=== PATIENT | female | born 1950 | race Caucasian/White ===

== ENCOUNTER 2019-01-16 10:34 | Outpatient (CLI) | payer MEDICARE, OTHER ==
[2019-01-16 12:13] LABS: MICROSCOPIC NOT IND
[2019-01-16 12:14] LABS: BASOPHILS # (AUTO) 0.03 x10^3/uL (0-0.1); BASOPHILS % (AUTO) 1 % (0-1); EOSINOPHILS # (AUTO) 0.13 x10^3/uL (0-0.4); EOSINOPHILS % (AUTO) 2 % (1-7); LYMPHOCYTES # (AUTO) 1.51 x10^3/uL (1-3.4); LYMPHOCYTES % (AUTO) 22 % (22-44); MD NO; MEAN CORPUSCULAR HEMOGLOBIN 30.6 pg (27.0-34.8); MEAN CORPUSCULAR HGB CONC 33.1 g/dL (32.4-35.8); MEAN CORPUSCULAR VOLUME 92.4 fL (80-100); MEAN PLATELET VOLUME 8.4 fL (7.4-10.4); MONOCYTES # (AUTO) 0.44 x10^3/uL (0.2-0.8); MONOCYTES % (AUTO) 7 % (2-9); NEUTROPHILS # (AUTO) 4.66 x10^3/uL (1.8-6.8); NEUTROPHILS % (AUTO) 69 % (42-75); PLATELET COUNT 277 x10^3/uL (130-400); RED BLOOD COUNT 4.07 x10^6/uL (3.82-5.3); RED CELL DISTRIBUTION WIDTH 13.1 % (9.6-15.2)
[2019-01-16 12:20] LABS: CULTURE INDICATED? NO
[2019-01-16 12:24] LABS: ANION GAP 5 mmol/L (5-15); CALCIUM 8.6 mg/dL (8.5-10.1); CHLORIDE 102 mmol/L (98-107); CREATININE 0.83 mg/dL (0.55-1.02)
[2019-01-16 12:35] LABS: INTERNATIONAL NORMALIZED RATIO 0.95 (0.93-1.1)
[2019-01-16] MEDS ORDERED: NAPR220T77 PO (16:13)
[2019-01-16] MEDS ORDERED: ROSU10TA2 PO (16:13)
== END 2019-01-16 23:59 | disposition home or self-care (01) ==
LOC: STAR 10:34 → RAD 23:59
PROVIDERS: ATTEND Neurological Surgery
DX: M51.36 Other intervertebral disc degeneration, lumbar region (principal); M48.062 Spinal stenosis, lumbar region with neurogenic claudication
CPT/HCPCS: 36415; 72110; 80048; 81003; 85025; 85610; 85730; 93005

== ENCOUNTER 2019-01-29 10:08 | Inpatient (IN) | payer MEDICARE, OTHER ==
[~2019-01-29] VITALS: Ht 175.3 cm; Wt 84.5 kg
[~2019-01-29 10:08] MED LIST: BACITRACIN 50,000 UNIT ONE; BUPIVACAINE/PF 0.25% ONE; EPINEPHRINE 1 MG/ML, 1ML ONE; NAPR220T77 PO; ROSU10TA2 PO; THROMBIN 20,000 UNIT VIAL TP ONE; VANCOMYCIN 1,000 MG ONE
[2019-01-29] MEDS ORDERED: LACTATED RINGERS 1,000 ML IV SCH (10:36)
[2019-01-29] MEDS ORDERED: LIDOCAINE-MPF 1%, 2ML INFIL ONE (11:00)
[2019-01-29] MEDS ORDERED: FENTANYL PF 250 MCG/5ML ONE ×2 (12:53→16:03)
[2019-01-29] MEDS ORDERED: MIDAZOLAM 1 MG/ML, 2ML ONE (12:53)
[2019-01-29] MEDS ORDERED: SUCCINYLCHOLINE 20 MG/ML, 10ML ONE (12:57)
[2019-01-29] MEDS ORDERED: CEFAZOLIN 1,000 MG ONE (12:57)
[2019-01-29] MEDS ORDERED: EPHEDRINE 50 MG/ML, 1ML ONE (12:57)
[2019-01-29] MEDS ORDERED: DEXAMETHASONE 4 MG/ML, 1ML ONE (12:57)
[2019-01-29] MEDS ORDERED: ONDANSETRON 2MG/ML, 2ML ONE (12:57)
[2019-01-29] MEDS ORDERED: PROPOFOL 10 MG/ML, 50ML ONE (12:57)
[2019-01-29] MEDS ORDERED: BUPIVACAINE/PF-EPI 0.25% 1:200K INFIL ONE (13:23)
[2019-01-29] MEDS ORDERED: BACITRACIN 50,000 UNIT IM ONE (13:23)
[2019-01-29] MEDS ORDERED: THROMBIN SPRAY 20,000 UNIT SPRAY TP ONE (13:23)
[2019-01-29] MEDS ORDERED: VANCOMYCIN 1,000 MG IM ONE (13:23)
[2019-01-29] MEDS ORDERED: LABETALOL 5MG/ML, 20ML IV PRN (15:30)
[2019-01-29] MEDS ORDERED: OXYcodone 5 MG/5 ML ORAL.SOL UDC PO PRN (15:30)
[2019-01-29] MEDS ORDERED: DIAZEPAM 5 MG/ML, 2ML IVPush PRN (15:30)
[2019-01-29] MEDS ORDERED: FENTANYL PF 100 MCG/2ML IV PRN (15:30)
[2019-01-29] MEDS ORDERED: MEPERIDINE/PF 25MG/0.5ML IVPush PRN (15:30)
[2019-01-29] MEDS ORDERED: ACETAMINOPHEN 325 MG TABLET PO PRN (15:30)
[2019-01-29] MEDS ORDERED: PROMETHAZINE 25 MG/ML, 1ML IV PRN (15:30)
[2019-01-29] MEDS ORDERED: hydrALAzine 20 MG/ML, 1ML IV PRN (15:30)
[2019-01-29] MEDS ORDERED: ALBUTEROL SULFATE 2.5 MG/3 ML NPPB PRN (15:30)
[2019-01-29] MEDS ORDERED: HYDROmorphone 2 MG/ML, 1ML ONE (16:58)
[2019-01-29] MEDS ORDERED: OXYcodone 5 MG/5 ML ORAL.SOL UDC ONE (16:58)
[2019-01-29] MEDS ORDERED: HYDROmorphone PCA 30 MG/30 ML IV PRN ×2 (17:00)
[2019-01-29] MEDS ORDERED: HYDROmorphone 1 MG/ML, 1ML INJ IVPush PRN (17:00)
[2019-01-29] MEDS ORDERED: DIAZEPAM 5 MG TABLET PO PRN (17:00)
[2019-01-29] MEDS ORDERED: BISACODYL 10 MG SUPP PR PRN (17:00)
[2019-01-29] MEDS ORDERED: MEPERIDINE/PF 100 MG/ML IM PRN (17:00)
[2019-01-29] MEDS ORDERED: DIPHENHYDRAMINE 50 MG/ML, 1ML IVPush PRN (17:00)
[2019-01-29] MEDS ORDERED: CEFAZOLIN PMX 1GM/50ML 50 ML IVPB SCH (17:00)
[2019-01-29] MEDS ORDERED: PROMETHAZINE 25 MG/ML, 1ML IM PRN (17:00)
[2019-01-29] MEDS ORDERED: PHARMACY MAY ADJ FOR RENAL FX MC PRN (17:00)
[2019-01-29] MEDS ORDERED: MAGNESIUM HYDROXIDE 8%, 30ML UDC PO PRN (17:00)
[2019-01-29] MEDS: HYDROmorphone 2 MG/ML, 1ML IVPush PRN ×3 (17:01→17:26)
[2019-01-29] MEDS ORDERED: SODIUM CHLORIDE 0.9%, 500ML IVBOLUS ONE (19:00)
[2019-01-29 19:19] LABS: BASOPHILS # (AUTO) 0.01 x10^3/uL (0-0.1); BASOPHILS % (AUTO) 0 % (0-1); EOSINOPHILS # (AUTO) 0.01 x10^3/uL (0-0.4); EOSINOPHILS % (AUTO) 0 % (1-7); LYMPHOCYTES % (AUTO) 9 % (22-44); MD NO; MEAN CORPUSCULAR HEMOGLOBIN 31.7 pg (27.0-34.8); MEAN CORPUSCULAR HGB CONC 34.4 g/dL (32.4-35.8); MEAN CORPUSCULAR VOLUME 92.2 fL (80-100); MEAN PLATELET VOLUME 7.9 fL (7.4-10.4); MONOCYTES # (AUTO) 0.61 x10^3/uL (0.2-0.8); MONOCYTES % (AUTO) 5 % (2-9); NEUTROPHILS # (AUTO) 10.05 x10^3/uL (1.8-6.8); NEUTROPHILS % (AUTO) 86 % (42-75); PLATELET COUNT 219 x10^3/uL (130-400); RED BLOOD COUNT 2.98 x10^6/uL (3.82-5.3); RED CELL DISTRIBUTION WIDTH 13.4 % (9.6-15.2)
[2019-01-29 19:25] VITALS: BP 100/62
[2019-01-29] MEDS: CEFAZOLIN PMX 1GM/50ML 50 ML IVPB SCH (20:49)
[2019-01-29] MEDS: SODIUM CHLORIDE FLUSH 10ML SYR IVF SCH (20:50)
[2019-01-29] MEDS: NS + 20MEQ KCL 1,000 ML IV SCH (20:50)
[2019-01-29] MEDS: ATORVASTATIN 20 MG TABLET PO SCH (20:50)
[2019-01-30] MEDS: TIZANIDINE 4MG TABLET PO PRN ×3 (00:18→15:47)
[2019-01-30 01:39] VITALS: BP 96/59
[2019-01-30] MEDS: ONDANSETRON 2MG/ML, 2ML IVPush PRN ×4 (04:01→22:27)
[2019-01-30] MEDS: OXYcodone/APAP 10/325MG TABLET PO PRN ×3 (04:01→22:27)
[2019-01-30] MEDS: CEFAZOLIN PMX 1GM/50ML 50 ML IVPB SCH (04:55)
[2019-01-30 05:32] LABS: BASOPHILS # (AUTO) 0.01 x10^3/uL (0-0.1); BASOPHILS % (AUTO) 0 % (0-1); EOSINOPHILS # (AUTO) 0.19 x10^3/uL (0-0.4); EOSINOPHILS % (AUTO) 2 % (1-7); LYMPHOCYTES # (AUTO) 0.92 x10^3/uL (1-3.4); LYMPHOCYTES % (AUTO) 9 % (22-44); MD NO; MEAN CORPUSCULAR HEMOGLOBIN 31.6 pg (27.0-34.8); MEAN CORPUSCULAR VOLUME 92.8 fL (80-100); MEAN PLATELET VOLUME 8.3 fL (7.4-10.4); MONOCYTES # (AUTO) 0.76 x10^3/uL (0.2-0.8); MONOCYTES % (AUTO) 7 % (2-9); NEUTROPHILS # (AUTO) 8.48 x10^3/uL (1.8-6.8); NEUTROPHILS % (AUTO) 82 % (42-75); PLATELET COUNT 201 x10^3/uL (130-400); RED BLOOD COUNT 2.58 x10^6/uL (3.82-5.3); RED CELL DISTRIBUTION WIDTH 13.3 % (9.6-15.2)
[2019-01-30 05:38] LABS: ANION GAP 8 mmol/L (5-15); CALCIUM 7.5 mg/dL (8.5-10.1); CHLORIDE 109 mmol/L (98-107)
[2019-01-30 05:39] LABS: CREATININE 0.89 mg/dL (0.55-1.02)
[2019-01-30] MEDS: NS + 20MEQ KCL 1,000 ML IV SCH ×2 (06:36→15:49)
[2019-01-30 08:03] VITALS: BP 93/64
[2019-01-30] MEDS: SENNA/DOCUSATE TABLET PO SCH (08:10)
[2019-01-30] MEDS: SODIUM CHLORIDE FLUSH 10ML SYR IVF SCH ×2 (08:10→20:36)
[2019-01-30 08:21] VITALS: BP 87/50
[2019-01-30 13:21] VITALS: BP 83/40
[2019-01-30 20:13] VITALS: BP 109/51
[2019-01-30] MEDS: ATORVASTATIN 20 MG TABLET PO SCH (20:35)
[2019-01-31] VITALS (9 sets, daily range): BP systolic 87–113; BP diastolic 46–70
[2019-01-31] MEDS: NS + 20MEQ KCL 1,000 ML IV SCH ×2 (02:25→21:00)
[2019-01-31] MEDS: TIZANIDINE 4MG TABLET PO PRN ×2 (05:16→23:16)
[2019-01-31 06:11] LABS: ANION GAP 4 mmol/L (5-15); CALCIUM 7.4 mg/dL (8.5-10.1); CHLORIDE 106 mmol/L (98-107); CREATININE 0.72 mg/dL (0.55-1.02)
[2019-01-31 06:14] LABS: MEAN CORPUSCULAR HGB CONC 33.7 g/dL (32.4-35.8); MEAN CORPUSCULAR VOLUME 91.9 fL (80-100); MEAN PLATELET VOLUME 8.2 fL (7.4-10.4); PLATELET COUNT 154 x10^3/uL (130-400); RED CELL DISTRIBUTION WIDTH 13.4 % (9.6-15.2)
[2019-01-31 07:00] LABS: BASOPHILS # (AUTO) 0.02 x10^3/uL (0-0.1); BASOPHILS % (AUTO) 0 % (0-1); EOSINOPHILS # (AUTO) 0.05 x10^3/uL (0-0.4); EOSINOPHILS % (AUTO) 1 % (1-7); LYMPHOCYTES # (AUTO) 1.07 x10^3/uL (1-3.4); LYMPHOCYTES % (AUTO) 18 % (22-44); MD SCAN; MONOCYTES # (AUTO) 0.59 x10^3/uL (0.2-0.8); MONOCYTES % (AUTO) 10 % (2-9); NEUTROPHILS # (AUTO) 4.14 x10^3/uL (1.8-6.8); NEUTROPHILS % (AUTO) 71 % (42-75)
[2019-01-31] MEDS: SODIUM CHLORIDE FLUSH 10ML SYR IVF SCH ×2 (09:00→21:00)
[2019-01-31] MEDS: SENNA/DOCUSATE TABLET PO SCH (09:00)
[2019-01-31] MEDS: ONDANSETRON 2MG/ML, 2ML IVPush PRN ×2 (12:18→20:51)
[2019-01-31] MEDS: OXYcodone/APAP 10/325MG TABLET PO PRN (12:18)
[2019-01-31] MEDS: ATORVASTATIN 20 MG TABLET PO SCH (21:00)
[2019-01-31] MEDS: METOCLOPRAMIDE 5 MG/ML, 2ML IVPush PRN (21:48)
[2019-02-01 02:01] VITALS: BP 102/63
[2019-02-01 06:04] LABS: ANION GAP 4 mmol/L (5-15); CALCIUM 7.7 mg/dL (8.5-10.1); CHLORIDE 109 mmol/L (98-107); CREATININE 0.64 mg/dL (0.55-1.02)
[2019-02-01 06:22] LABS: BASOPHILS # (AUTO) 0.01 x10^3/uL (0-0.1); BASOPHILS % (AUTO) 0 % (0-1); EOSINOPHILS % (AUTO) 0 % (1-7); LYMPHOCYTES # (AUTO) 0.78 x10^3/uL (1-3.4); LYMPHOCYTES % (AUTO) 11 % (22-44); MD NO; MEAN CORPUSCULAR HEMOGLOBIN 31.6 pg (27.0-34.8); MEAN CORPUSCULAR HGB CONC 34.6 g/dL (32.4-35.8); MEAN CORPUSCULAR VOLUME 91.1 fL (80-100); MEAN PLATELET VOLUME 8.4 fL (7.4-10.4); MONOCYTES # (AUTO) 0.55 x10^3/uL (0.2-0.8); MONOCYTES % (AUTO) 8 % (2-9); NEUTROPHILS # (AUTO) 5.55 x10^3/uL (1.8-6.8); NEUTROPHILS % (AUTO) 81 % (42-75); PLATELET COUNT 150 x10^3/uL (130-400); RED BLOOD COUNT 3.09 x10^6/uL (3.82-5.3); RED CELL DISTRIBUTION WIDTH 13.6 % (9.6-15.2)
[2019-02-01 07:30] VITALS: BP 116/68
[2019-02-01] MEDS: NS + 20MEQ KCL 1,000 ML IV SCH ×2 (07:56→20:48)
[2019-02-01] MEDS: SODIUM CHLORIDE FLUSH 10ML SYR IVF SCH ×2 (07:56→22:18)
[2019-02-01] MEDS: SENNA/DOCUSATE TABLET PO SCH (07:57)
[2019-02-01] MEDS: SCOPOLAMINE PATCH, 1.5MG PATCH.TD72 TD SCH (09:00)
[2019-02-01 12:28] LABS: BASOPHILS # (AUTO) 0.04 x10^3/uL (0-0.1); BASOPHILS % (AUTO) 1 % (0-1); EOSINOPHILS # (AUTO) 0.05 x10^3/uL (0-0.4); EOSINOPHILS % (AUTO) 1 % (1-7); LYMPHOCYTES # (AUTO) 0.92 x10^3/uL (1-3.4); LYMPHOCYTES % (AUTO) 11 % (22-44); MD NO; MEAN CORPUSCULAR HEMOGLOBIN 30.7 pg (27.0-34.8); MEAN CORPUSCULAR HGB CONC 33.6 g/dL (32.4-35.8); MEAN CORPUSCULAR VOLUME 91.1 fL (80-100); MEAN PLATELET VOLUME 8.4 fL (7.4-10.4); MONOCYTES # (AUTO) 0.75 x10^3/uL (0.2-0.8); MONOCYTES % (AUTO) 9 % (2-9); NEUTROPHILS # (AUTO) 6.74 x10^3/uL (1.8-6.8); NEUTROPHILS % (AUTO) 79 % (42-75); PLATELET COUNT 181 x10^3/uL (130-400); RED CELL DISTRIBUTION WIDTH 13.3 % (9.6-15.2)
[2019-02-01 12:35] LABS: ANION GAP 5 mmol/L (5-15); CALCIUM 7.8 mg/dL (8.5-10.1); CHLORIDE 110 mmol/L (98-107); CREATININE 0.71 mg/dL (0.55-1.02)
[2019-02-01 12:40] VITALS: BP 115/75
[2019-02-01] MEDS: METOCLOPRAMIDE 5 MG/ML, 2ML IVPush PRN (16:09)
[2019-02-01 18:36] VITALS: BP 133/68
[2019-02-01] MEDS: ATORVASTATIN 20 MG TABLET PO SCH (22:18)
[2019-02-01] MEDS: HYDROmorphone 2MG TABLET PO PRN (22:38)
[2019-02-02] VITALS: BP 121/63
[2019-02-02 05:14] LABS: BASOPHILS # (AUTO) 0.09 x10^3/uL (0-0.1); BASOPHILS % (AUTO) 1 % (0-1); EOSINOPHILS # (AUTO) 0.14 x10^3/uL (0-0.4); EOSINOPHILS % (AUTO) 2 % (1-7); LYMPHOCYTES # (AUTO) 1.25 x10^3/uL (1-3.4); LYMPHOCYTES % (AUTO) 15 % (22-44); MD NO; MEAN CORPUSCULAR HGB CONC 35.1 g/dL (32.4-35.8); MEAN CORPUSCULAR VOLUME 91.3 fL (80-100); MEAN PLATELET VOLUME 8.3 fL (7.4-10.4); MONOCYTES % (AUTO) 10 % (2-9); NEUTROPHILS # (AUTO) 5.97 x10^3/uL (1.8-6.8); NEUTROPHILS % (AUTO) 72 % (42-75); PLATELET COUNT 197 x10^3/uL (130-400); RED BLOOD COUNT 3.08 x10^6/uL (3.82-5.3); RED CELL DISTRIBUTION WIDTH 13.5 % (9.6-15.2)
[2019-02-02 05:29] LABS: ANION GAP 6 mmol/L (5-15); CALCIUM 7.5 mg/dL (8.5-10.1); CHLORIDE 110 mmol/L (98-107); CREATININE 0.63 mg/dL (0.55-1.02)
[2019-02-02] MEDS: NS + 20MEQ KCL 1,000 ML IV SCH ×2 (07:53→18:18)
[2019-02-02] MEDS: SODIUM CHLORIDE FLUSH 10ML SYR IVF SCH ×2 (07:53→21:00)
[2019-02-02] MEDS: SENNA/DOCUSATE TABLET PO SCH (07:53)
[2019-02-02 08:01] VITALS: BP 148/103
[2019-02-02 09:45] LABS: CLOSTRIDIUM DIFFICILE ANTIGEN NEGATIVE; CLOSTRIDIUM DIFFICILE TOXIN NEGATIVE (Negative)
[2019-02-02] MEDS: HYDROmorphone 2MG TABLET PO PRN (10:47)
[2019-02-02 12:40] VITALS: BP 112/72
[2019-02-02 19:47] VITALS: BP 138/78
[2019-02-02] MEDS: ATORVASTATIN 20 MG TABLET PO SCH (21:16)
[2019-02-02] MEDS: METOCLOPRAMIDE 5 MG/ML, 2ML IVPush PRN (21:16)
[2019-02-03] MEDS: NS + 20MEQ KCL 1,000 ML IV SCH ×3 (03:01→23:28)
[2019-02-03] MEDS: SODIUM CHLORIDE FLUSH 10ML SYR IVF SCH ×2 (03:03→19:36)
[2019-02-03 03:29] VITALS: BP 121/64
[2019-02-03 05:32] LABS: BASOPHILS # (AUTO) 0.02 x10^3/uL (0-0.1); BASOPHILS % (AUTO) 0 % (0-1); EOSINOPHILS # (AUTO) 0.31 x10^3/uL (0-0.4); EOSINOPHILS % (AUTO) 5 % (1-7); LYMPHOCYTES # (AUTO) 1.24 x10^3/uL (1-3.4); LYMPHOCYTES % (AUTO) 18 % (22-44); MD NO; MEAN CORPUSCULAR HEMOGLOBIN 31.9 pg (27.0-34.8); MEAN CORPUSCULAR HGB CONC 34.4 g/dL (32.4-35.8); MEAN CORPUSCULAR VOLUME 92.8 fL (80-100); MEAN PLATELET VOLUME 8.6 fL (7.4-10.4); MONOCYTES # (AUTO) 0.79 x10^3/uL (0.2-0.8); MONOCYTES % (AUTO) 12 % (2-9); NEUTROPHILS # (AUTO) 4.51 x10^3/uL (1.8-6.8); NEUTROPHILS % (AUTO) 66 % (42-75); PLATELET COUNT 210 x10^3/uL (130-400); RED BLOOD COUNT 3.12 x10^6/uL (3.82-5.3); RED CELL DISTRIBUTION WIDTH 13.2 % (9.6-15.2)
[2019-02-03 05:33] LABS: CHLORIDE 109 mmol/L (98-107)
[2019-02-03 05:39] LABS: ANION GAP 6 mmol/L (5-15); CALCIUM 7.6 mg/dL (8.5-10.1); CREATININE 0.61 mg/dL (0.55-1.02)
[2019-02-03 07:09] VITALS: BP 126/73
[2019-02-03] MEDS: SENNA/DOCUSATE TABLET PO SCH (08:28)
[2019-02-03 14:02] VITALS: BP 124/76
[2019-02-03] MEDS: BETHANECHOL 10 MG TABLET PO PRN (19:35)
[2019-02-03] MEDS: ATORVASTATIN 20 MG TABLET PO SCH (19:35)
[2019-02-03 20:12] VITALS: BP 148/78
[2019-02-04 01:29] VITALS: BP 137/70
[2019-02-04 06:28] LABS: BASOPHILS # (AUTO) 0.02 x10^3/uL (0-0.1); BASOPHILS % (AUTO) 0 % (0-1); EOSINOPHILS # (AUTO) 0.28 x10^3/uL (0-0.4); EOSINOPHILS % (AUTO) 5 % (1-7); LYMPHOCYTES # (AUTO) 1.32 x10^3/uL (1-3.4); LYMPHOCYTES % (AUTO) 22 % (22-44); MD NO; MEAN CORPUSCULAR HEMOGLOBIN 31.7 pg (27.0-34.8); MEAN CORPUSCULAR HGB CONC 34.5 g/dL (32.4-35.8); MEAN CORPUSCULAR VOLUME 91.8 fL (80-100); MEAN PLATELET VOLUME 8.2 fL (7.4-10.4); MONOCYTES # (AUTO) 0.71 x10^3/uL (0.2-0.8); MONOCYTES % (AUTO) 12 % (2-9); NEUTROPHILS # (AUTO) 3.65 x10^3/uL (1.8-6.8); NEUTROPHILS % (AUTO) 61 % (42-75); PLATELET COUNT 220 x10^3/uL (130-400); RED BLOOD COUNT 2.99 x10^6/uL (3.82-5.3); RED CELL DISTRIBUTION WIDTH 13.3 % (9.6-15.2)
[2019-02-04 06:34] LABS: ANION GAP 5 mmol/L (5-15); CALCIUM 7.8 mg/dL (8.5-10.1); CHLORIDE 110 mmol/L (98-107); CREATININE 0.58 mg/dL (0.55-1.02)
[2019-02-04] MEDS ORDERED: TIZA2TAB PO (07:50)
[2019-02-04] MEDS ORDERED: HYDR2TAB40 PO (07:50)
[2019-02-04 07:59] VITALS: BP 139/82
[2019-02-04] MEDS: SODIUM CHLORIDE FLUSH 10ML SYR IVF SCH (08:19)
[2019-02-04] MEDS: SCOPOLAMINE PATCH, 1.5MG PATCH.TD72 TD SCH (08:22)
[2019-02-04] MEDS: SENNA/DOCUSATE TABLET PO SCH (08:23)
[2019-02-04] MEDS: BETHANECHOL 10 MG TABLET PO PRN ×2 (08:32→14:57)
[2019-02-04 14:17] VITALS: BP 116/76
== END 2019-02-04 17:00 | DRG 453 ==
LOC: ORIP 10:08 → 4NOR 18:09
PROVIDERS: ADMIT Neurological Surgery; ATTEND Neurological Surgery
PROC: 0SG1071 Fusion of 2 or more Lumbar Vertebral Joints with Autologous Tissue Substitute, Posterior Approach, Posterior Column, Open Approach (ICD-10-PCS; 2019-01-29)
PROC: 0SP008Z Removal of Spacer from Lumbar Vertebral Joint, Open Approach (ICD-10-PCS; 2019-01-29)
PROC: 0SG10AJ Fusion of 2 or more Lumbar Vertebral Joints with Interbody Fusion Device, Posterior Approach, Anterior Column, Open Approach (ICD-10-PCS; principal; 2019-01-29 13:00)
DX: M48.062 Spinal stenosis, lumbar region with neurogenic claudication (principal); R53.2 Functional quadriplegia; M43.16 Spondylolisthesis, lumbar region; M54.16 Radiculopathy, lumbar region; M51.36 Other intervertebral disc degeneration, lumbar region; Z88.2 Allergy status to sulfonamides
CPT/HCPCS: 36415; 72100; 80048; 85025; 86850; 86900; 86923; 87324; 95938; 95941; C1713; C1776; G0378; J0171; J0690; J1100; J1170; J2250; J2405; J2704; J3010; J3370; J3480; J3490; C1762; J0330; J2765; J7040; J7120; P9016